=== PATIENT | male | born 2000 | race Caucasian/White ===

== ENCOUNTER 2021-11-09 17:58 | Emergency (ER) | payer OTHER ==
[2021-11-09 18:15] VITALS: BP 133/79
--- NOTE | 2021-11-09 19:08 | XRAY Report ---
PROCEDURE: Wrist 4 View RT INDICATIONS: pain, no injury TECHNIQUE: 4 views of the wrist were acquired. COMPARISON: None. FINDINGS: Bones: No fractures or dislocations. No suspicious bony lesions. Scaphoid view: Scaphoid appears intact. Soft tissues: No suspicious soft tissue calcifications. Soft tissue swelling. IMPRESSION: 1. No acute osseous abnormalities. If clinical symptoms persist, a repeat examination in 7-10 days or advanced imaging such as CT or MRI is suggested. Reviewed by: Abel Estrada MD on 11/09/2021 7:06 PM PDT Approved by: Abel Estrada MD on 11/09/2021 7:06 PM PDT Station ID: [id number]
--- NOTE | 2021-11-09 19:09 | XRAY Report ---
PROCEDURE: Shoulder 3 View LT INDICATIONS: pain, no injury TECHNIQUE: 3 views of the shoulder were acquired. COMPARISON: None. FINDINGS: Bones: No fractures or dislocations. No suspicious bony lesions. Visualized ribs appear intact. Soft tissues: No suspicious soft tissue calcifications. IMPRESSION: No acute osseous abnormalities. If clinical symptoms persist, a repeat examination in 7- 10 days, or advanced imaging such as CT or MRI is suggested. Reviewed by: Abel Estrada MD on 11/09/2021 7:07 PM PDT Approved by: Abel Estrada MD on 11/09/2021 7:07 PM PDT Station ID: [id number]
--- NOTE | 2021-11-09 19:33 | ED Physician Documentation ---
History of Present Illness - Stated complaint Stated Complaint: LT SHOULDER PX/BILAT WRIST PX - Chief complaint Chief Complaint: Ext Problem - History obtained from History obtained from: Patient, Family - History of Present Illness Pain level max: 6 Pain level now: 3 - Additonal information Additional information: Patient is a 21-year-old male, active [employer] who presents to the emergency department complaining of left shoulder pain for the past 3 to 6 months. Also having right wrist pain for the past 3 to 6 months. Worse when he is working. He states he uses tools and carries heavy objects. He has not seen [facility] for this. Worse with movement, better with rest. No numbness or tingling. Does not recall any specific injury. Review of Systems Constitutional: denies: Fever, Chills GI: denies: Vomiting, Diarrhea Skin: denies: Rash Musculoskeletal: denies: Neck pain, Back pain Neurologic: denies: Headache PD PAST MEDICAL HISTORY - Past Medical History Past Medical History: No Cardiovascular: None Respiratory: None Neuro: None Endocrine/Autoimmune: None GI: None : None HEENT: None Psych: None Musculoskeletal: None Derm: None - Past Surgical History Past Surgical History: Yes Ortho: Other - Present Medications Home Medications: Ambulatory Orders Medication Instructions Recorded Confirmed No Known Home Medications 11/09/21 11/09/21 - Allergies Allergies/Adverse Reactions: Allergies Allergy/AdvReac Type Severity Reaction Status Date / Time No Known Drug Allergies Allergy Verified 11/09/21 18:10 - Social History Does the pt smoke?: No Smoking Status: Never smoker Does the pt drink ETOH?: Yes Does the pt have substance abuse?: No - Immunizations Immunizations are current?: Yes PD ED PE NORMAL - Vitals Vital signs reviewed: Yes - General General: Alert and oriented X 3, No acute distress - Derm Derm: Warm and dry - Neuro Neuro: Alert and oriented X 3 - Free text exam Free text exam: R wrist + phalen's test. negative tinel sign. Pain with dorsiflexion of the wrist. Pain with radial and ulnar deviation. Neurovascular intact. Otherwise normal examination of the hand, wrist and forearm. No snuffbox tenderness. Left shoulder - Pain with internal rotation and abduction above 90 degrees. Pain is in the anterior portion of the glenohumeral joint. Neurovascular intact. No deformity. No bony tenderness Results - Vitals Vitals: Vital Signs - 24 hr 07/20/22 18:11 Temperature 36.5 C Heart Rate 72 Respiratory 16 Rate Blood Pressure 133/79 H O2 Saturation 100 Oxygen O2 Source Room air - Rads (name of study) Left shoulder x-ray Radiology: Final report received, EMP read contemporaneously, See rad report Right wrist x-ray Radiology: Final report received, EMP read contemporaneously, See rad report (No acute abnormality) PD MEDICAL DECISION MAKING - ED course Complexity details: reviewed results, re-evaluated patient, considered differential, d/w patient ED course: No acute findings on x-ray of the shoulder or wrist. The right wrist appears to be suffering from carpal tunnel syndrome. Placed in a Velcro splint. The left shoulder appears to likely be rotator cuff tendinitis versus a rotator cuff tear. 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 He may also want to see orthopedist. Patient has pain medication at home. He will follow-up with his doctor for further care. Patient counseled regarding signs and symptoms for which I believe and urgent re-evaluation would be necessary. Patient with good understanding of and agreement to plan and is comfortable going home at this time This document was made in part using voice recognition software. While efforts are made to proofread this document, sound alike and grammatical errors may occur. Departure - Departure Disposition: 01 Home, Self Care Clinical Impression: Carpal tunnel syndrome Qualifiers: Laterality: right Qualified Code(s): G56.01 - Carpal tunnel syndrome, right upper limb Rotator cuff tendinitis Qualifiers: Laterality: left Qualified Code(s): M75.82 - Other shoulder lesions, left shoulder Condition: Good Instructions: ED Carpal Tunnel, ED Tendinitis Rotator Cuff Follow-Up: [facility] [Provider Group] [facility] [Provider Group] Comments: Your x-rays do not show any acute abnormalities today. Please follow-up with [facility] for further care. They may want to order an MRI of your shoulder to see if there is a rotator cuff tear versus tendinitis. They may want to refer you to physical therapy as well. The wrist splint should be worn at night, you can also wear it during the day. This should help to decrease the inflammation around the carpal tunnel. You can also contact orthopedics for follow-up. I would continue Uli and Tylenol as needed for pain. Return if you worsen. 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 Discharge Date/Time: 11/09/21 22:02
== END 2021-11-09 22:02 | disposition home or self-care (01) ==
LOC: ED 17:58
DX: G56.01 Carpal tunnel syndrome, right upper limb (principal); M75.82 Other shoulder lesions, left shoulder
CPT/HCPCS: 99282; 99283

== ENCOUNTER 2022-04-22 10:09 | Outpatient (CLI) | payer OTHER ==
--- NOTE | 2022-04-24 15:18 | MRI Report ---
PROCEDURE: SHOULDER WO - LT INDICATIONS: LEFT SHOULDER PAIN TECHNIQUE: Noncontrast oblique coronal T2 fast spin echo with fat saturation, oblique sagittal T1 spin echo and T2 fast spin echo with fat saturation, axial T1 spin echo and T2 fast spin echo with fat saturation t hrough the shoulder. COMPARISON: None. FINDINGS: Image quality: Excellent. Rotator cuff: There is moderate supraspinatus and subscapularis tendinosis. There is a partial-thickn ess tear of the distal supraspinatus and subscapularis tendons involving the footprint. There is mild infraspinatus tendinosis. No rotator cuff muscle atrophy. Bones and bursae: No bone marrow contusions or fractures. Mild acromioclavicular joint degeneration. There is an os acromiale. No pathologic subacromial/subdeltoid bursal fluid is present. Capsule and soft tissues: There is a posterior labral tear with multiple paralabral cysts. In the abs ence of intra-articular contrast, the glenohumeral ligaments appear intact. The long head of the bic eps tendon demonstrates normal location and morphology. The rotator interval appears normal, without fibrosis. The coracohumeral ligament is normal in thickness. IMPRESSION: 1. Moderate supraspinous and subscapular stenosis. There is partial-thickness tear of the supraspinou s and subscapularis tendons involving the footprint. 2. Mild intraspinous tendinosis. 3. Posterior labral tear with multiple paralabral cysts. 4. Mild acromioclavicular degeneration. 5. Os acromiale. Reviewed by: Abel Estrada MD on 04/24/2022 3:17 PM PST Approved by: Abel Estrada MD on 04/24/2022 3:17 PM PST Station ID: [id number]
== END 2022-04-22 10:10 | disposition home or self-care (01) ==
LOC: DI 10:09
DX: M75.112 Incomplete rotator cuff tear or rupture of left shoulder, not specified as traumatic (principal); M19.012 Primary osteoarthritis, left shoulder; S43.432A Superior glenoid labrum lesion of left shoulder, initial encounter